=== PATIENT | male | born 1940 | race Caucasian/White ===

== ENCOUNTER 2018-12-26 06:07 | Inpatient (IN) | payer MEDICARE, BC ==
[~2018-12-26] VITALS: Ht 162.6 cm; Wt 74.4 kg
--- NOTE | 2018-12-26 08:30 | NUR ---
GPS/RN RECEIVED PT DIRECT ADMIT FROM [facility] ON 5150 FOR DTS NO ACUTE DISTRESS AMBULATORY WITH WALKER. ADMITTING ORDERS FROM DR MALIN RECEIVED AND CARRIED OUT. DR DAVIS MADE AWARE OF ADMISSION. MEDS ENTERED IN THE PATIENT'S CHOICE [facility] BY RECON. NURSE MIRIAM. CONTRABAND/MEDS TAKEN AND SENT TO THE PHARMACY FOR KEEP. DURING EYE TO EYE ASSESSMENT PT DENIED SI/HI.PT REFUSED TO SIGN THE ADMITTING PAPERWORK/CONSENTS AND TO LET THE NURSE TO COLLECT MRSA SWAB.
[2018-12-26] MEDS ORDERED: MAG HYDROX/AL HYDROX/SIMETH 30 ML UDC PO PRN (09:00)
[2018-12-26] MEDS ORDERED: ACETAMINOPHEN 325 MG TABLET PO PRN (09:00)
[2018-12-26] MEDS ORDERED: MAGNESIUM HYDROXIDE 30 ML UDC PO PRN (09:00)
[2018-12-26 09:13] VITALS: BP 131/81
[2018-12-26] MEDS ORDERED: DABI150C PO (09:44)
[2018-12-26] MEDS ORDERED: SIMV20TA6 PO (09:44)
[2018-12-26] MEDS ORDERED: TERA10CA4 PO (09:44)
[2018-12-26] MEDS ORDERED: DULO30CA51 PO (09:44)
[2018-12-26] MEDS ORDERED: OXYC30TA2 PO (09:44)
[2018-12-26] MEDS ORDERED: BACL10TA PO (09:44)
[2018-12-26] MEDS ORDERED: PREG50CA PO (09:44)
[2018-12-26] MEDS ORDERED: MIRT30TA7 PO (09:44)
[2018-12-26] MEDS ORDERED: TAPE50TA2 PO (11:30)
--- NOTE | 2018-12-26 11:30 | NUR ---
GPS/RN NUCYNTA 50 MG BID ENTERED IN HOME MEDS LIST ( PT HAS SUPPLY OF 51 TABLETS STORED AT [facility] FROM HOME MEDS SUPPLY/ COUNTED TOGETHER WITH RAYMUNDO/PHARMACY) DR SUSAN SIMON MADE AWARE OF MEDS CLARIFICATION AND TO RECONCILE MEDS
--- NOTE | 2018-12-26 11:40 | NUR ---
RN-CO: PAGED DR DAVIS TO RECONCILE TAPENTADOL HCL , AWAITING TO CALL BACK.
--- NOTE | 2018-12-26 12:03 | NUR ---
Pts , Jenny ([phone]), called the SW and stated that she does not want the pt to be discharged home. She stated that she wanted him to be transferred to the [facility] because that is closer to her location. SW stated that she will attempt to do a transfer for the pt but she stated that she cannot guarantee anything.
--- NOTE | 2018-12-26 12:34 | NUR ---
RN-CO: paged again Dr Galindo to inform him that patient needs his Oxycodone and Tapentadol hcl for pain. He refuse neurontin.
[2018-12-26] MEDS: GABAPENTIN 100 MG CAPSULE PO SCH ×2 (12:47→16:04)
[2018-12-26] MEDS ORDERED: FURO40TA5 PO (14:37)
[2018-12-26 16:00] VITALS: BP 139/66
[2018-12-26] MEDS: FUROSEMIDE 40 MG TABLET PO SCH (16:04)
[2018-12-26] MEDS: oxyCODONE IR immediate release 5 MG PO PRN (16:04)
[2018-12-26] MEDS: BACLOFEN (10 MG) 10 MG TABLET PO SCH ×2 (16:04→21:43)
[2018-12-26] MEDS: PREGABALIN 25 MG CAPSULE PO SCH (16:06)
--- NOTE | 2018-12-26 16:19 | NUR ---
TITO called the pts , Jenny ([phone]), and discussed the pt's need for pain medications. Pts stated that she decided that she does not want him transferred to [facility] anymore because she does not want to keep moving him around. She also stated that she would like to speak with the pts psychiatrist, Dr. Timmons. TITO stated she would convey the message.
[2018-12-26] MEDS ORDERED: DABIGATRAN ETEXILATE MESYLATE 150 MG CAPSULE PO SCH (17:00)
[2018-12-26] MEDS: DABIGATRAN ETEXILATE MESYLATE 150 MG CAPSULE PO SCH (17:46)
[2018-12-26 20:00] VITALS: BP 108/64
[2018-12-26] MEDS: MIRTAZAPINE 15 MG TABLET PO SCH (21:43)
[2018-12-26] MEDS: TEMAZEPAM 7.5 MG CAPSULE PO PRN (21:43)
[2018-12-26] MEDS: DULOXETINE HCL 30 MG CAPSULE.DR PO SCH (21:43)
[2018-12-26] MEDS: TERAZOSIN HCL 5 MG CAPSULE PO SCH (21:45)
[2018-12-27] MEDS: oxyCODONE IR immediate release 5 MG PO PRN ×3 (00:56→17:56)
[2018-12-27] MEDS: BACLOFEN (10 MG) 10 MG TABLET PO SCH ×3 (06:42→21:24)
[2018-12-27 07:16] LABS: CHOLESTEROL 134 mg/dL (<200); HDL CHOLESTEROL 66 mg/dL (40-60); LDL 61 mg/dL (0-99); TRIGLYCERIDES 30 mg/dL (30-150)
[2018-12-27 07:24] LABS: ALANINE AMINOTRANSFERASE 28 U/L (12-78); ALBUMIN 2.9 g/dL (3.4-5.0); ALKALINE PHOSPHATASE 58 U/L (46-116); ASPARTATE AMINOTRANSFERASE 30 U/L (15-37); BILIRUBIN,TOTAL 0.3 mg/dL (0.2-1.0); CALCIUM, SERUM 10.1 mg/dL (8.5-10.1); CARBON DIOXIDE 28 mmol/L (21-32); CHLORIDE 109 mmol/L (98-107); CREATININE 0.8 mg/dL (0.6-1.3); GLUCOSE 103 mg/dL (74-106); SODIUM SERUM 145 mmol/L (136-145); TOTAL PROTEIN, SERUM 5.8 g/dL (6.4-8.2); UREA NITROGEN, BLOOD 20 mg/dL (7-18)
[2018-12-27 08:00] VITALS: BP 135/84
[2018-12-27] MEDS: GABAPENTIN 100 MG CAPSULE PO SCH ×3 (09:18→16:41)
[2018-12-27] MEDS: FUROSEMIDE 40 MG TABLET PO SCH (09:20)
[2018-12-27] MEDS: SIMVASTATIN 20 MG TABLET PO SCH (09:21)
[2018-12-27] MEDS: PREGABALIN 25 MG CAPSULE PO SCH ×3 (09:21→16:47)
[2018-12-27] MEDS: DABIGATRAN ETEXILATE MESYLATE 150 MG CAPSULE PO SCH ×2 (09:24→17:56)
--- NOTE | 2018-12-27 14:49 | NUR ---
Initial Discharge Plan: Pt currently resides at home with his located at [address] [place] [address]; ([phone]). Per pt, he would like to return home. SW will work with the pt and the MD regarding appropriate discharge planning. SW will form a safe and proper discharge.
[2018-12-27 16:00] VITALS: BP 122/74
--- NOTE | 2018-12-27 16:12 | NUR ---
Supportive Counseling: SW and the pt discussed the pts needs while he is in the hospital. Pt stated that he feels alone and unattended to and that he needs his medication to be managed more appropriately. Pt stated that all he wants is to not be in pain because that is what causes him to feel so depressed. SW stated that he must advocate for himself when it comes to his medications and the SW stated that she would attempt to advocate for him as well.
--- NOTE | 2018-12-27 16:14 | NUR ---
Pts , Jenny ([phone]), called the SW and stated that she does not think that this facility is appropriate for the pt and that she would like to have him transferred. She stated that she would like to speak to the pt's psychiatrist.
[2018-12-27 20:01] VITALS: BP 136/51
[2018-12-27] MEDS: MIRTAZAPINE 15 MG TABLET PO SCH (21:22)
[2018-12-27] MEDS: DULOXETINE HCL 30 MG CAPSULE.DR PO SCH (21:22)
[2018-12-27] MEDS: TERAZOSIN HCL 5 MG CAPSULE PO SCH (21:23)
[2018-12-27] MEDS: TEMAZEPAM 7.5 MG CAPSULE PO PRN (22:19)
[2018-12-27] MEDS: LORAZEPAM 0.5 MG TABLET PO PRN (23:29)
[2018-12-28] MEDS: BACLOFEN (10 MG) 10 MG TABLET PO SCH ×3 (05:14→21:39)
[2018-12-28 08:00] VITALS: BP 142/64
[2018-12-28] MEDS: FUROSEMIDE 40 MG TABLET PO SCH (09:00)
[2018-12-28] MEDS: PREGABALIN 25 MG CAPSULE PO SCH ×3 (09:00→16:57)
[2018-12-28] MEDS: SIMVASTATIN 20 MG TABLET PO SCH (09:00)
[2018-12-28] MEDS: GABAPENTIN 100 MG CAPSULE PO SCH ×3 (09:00→16:57)
[2018-12-28] MEDS: DABIGATRAN ETEXILATE MESYLATE 150 MG CAPSULE PO SCH (09:01)
[2018-12-28 16:00] VITALS: BP 151/74
[2018-12-28] MEDS: PRADAXA 150 MG PO SCH (16:57)
[2018-12-28 20:00] VITALS: BP 151/79
[2018-12-28] MEDS: MIRTAZAPINE 15 MG TABLET PO SCH (21:38)
[2018-12-28] MEDS: DULOXETINE HCL 30 MG CAPSULE.DR PO SCH (21:39)
[2018-12-28] MEDS: TERAZOSIN HCL 5 MG CAPSULE PO SCH (21:40)
[2018-12-28] MEDS: TEMAZEPAM 7.5 MG CAPSULE PO PRN (21:42)
[2018-12-29] MEDS: LORAZEPAM 0.5 MG TABLET PO PRN (00:29)
[2018-12-29] MEDS: BACLOFEN (10 MG) 10 MG TABLET PO SCH ×3 (05:23→21:54)
[2018-12-29 08:00] VITALS: BP 130/64
[2018-12-29] MEDS: SIMVASTATIN 20 MG TABLET PO SCH (09:28)
[2018-12-29] MEDS: PREGABALIN 25 MG CAPSULE PO SCH ×3 (09:28→17:03)
[2018-12-29] MEDS: FUROSEMIDE 40 MG TABLET PO SCH (09:28)
[2018-12-29] MEDS: PRADAXA 150 MG PO SCH ×2 (09:28→18:06)
[2018-12-29] MEDS: GABAPENTIN 100 MG CAPSULE PO SCH ×3 (09:28→17:03)
[2018-12-29 16:00] VITALS: BP 138/81
[2018-12-29] MEDS: oxyCODONE IR immediate release 5 MG PO PRN (17:03)
--- NOTE | 2018-12-29 17:03 | NUR ---
RN NOTES ADMINISTERED OXY IR 10 MG PO PRN FOR CHRONIC LOWER BILATERAL LEGS PAIN 04/05 PER PATIENT REQUEST. V/S TAKEN BP-138/81, P-91, CONTINUED MONITORING.
[2018-12-29 19:42] VITALS: BP 130/83
[2018-12-29] MEDS: DULOXETINE HCL 30 MG CAPSULE.DR PO SCH (21:54)
[2018-12-29] MEDS: TERAZOSIN HCL 5 MG CAPSULE PO SCH (21:55)
[2018-12-29] MEDS: TEMAZEPAM 7.5 MG CAPSULE PO PRN (21:56)
[2018-12-29] MEDS: MIRTAZAPINE 15 MG TABLET PO SCH (21:56)
[2018-12-30] MEDS: LORAZEPAM 0.5 MG TABLET PO PRN ×2 (00:01→22:24)
[2018-12-30] MEDS: BACLOFEN (10 MG) 10 MG TABLET PO SCH ×3 (05:50→21:22)
--- NOTE | 2018-12-30 07:45 | NUR ---
RN NOTE: RECEIVED PATIENT IN BED, AWAKE, ALERT AND ABLE TO MAKE HIS NEEDS KNOWN. RESPIRATION EVEN AND UNLABORED. DENIED ANY PAIN. DENIED ANY SUICIDAL THOUGHTS/IDEATION, NO AUDITORY/VISUAL HALLUCINATIONS NOTED. REMAINED ISOLATED INSIDE HIS ROOM. REFUSED TO GO OUT TO THE ACTIVITY ROOM. ENCOURAGED TO GO OUT OF THE ROOM, BUT PATIENT STRONGLY REFUSED. BED ALARMED AND LOCKED AT ALL TIMES. NEED ANTICIPATED. CALL WELCH WITHIN REACH. WILL MONITOR PAIN WITHIN THE SHIFT.
[2018-12-30 08:00] VITALS: BP 118/70
[2018-12-30] MEDS: PREGABALIN 25 MG CAPSULE PO SCH ×3 (09:25→16:58)
[2018-12-30] MEDS: PRADAXA 150 MG PO SCH ×2 (09:25→16:58)
[2018-12-30] MEDS: GABAPENTIN 100 MG CAPSULE PO SCH ×3 (09:25→16:58)
[2018-12-30] MEDS: FUROSEMIDE 40 MG TABLET PO SCH (09:25)
[2018-12-30] MEDS: SIMVASTATIN 20 MG TABLET PO SCH (09:26)
--- NOTE | 2018-12-30 11:32 | NUR ---
TITO called the pts , Jenny ([phone]), and left her a voicemail stating that she would like a call back whenever possible.
--- NOTE | 2018-12-30 11:40 | NUR ---
TITO spoke to the pts , Jenny ([phone]), and she stated that she wants the pt to be discharged home and that she has found treatment for him through an injection that will help the pt with his pain and his depression. TITO stated that she would speak to the psychiatrist and then she would let her know about the pts discharge.
--- NOTE | 2018-12-30 13:45 | NUR ---
Group Note: Pt was asked to participate in group therapy but he stated that he did not want to participate due to his belief that he does not belong in the hospital with our patient population and that he only wants to focus on being discharged back home where he believes that he will receive appropriate care.
--- NOTE | 2018-12-30 14:47 | NUR ---
SW called [employer] ([phone]) and left a voicemail stating that she would like a police captain precinct to call her back because she needs to make a report about a pt in the hospital.
--- NOTE | 2018-12-30 14:56 | NUR ---
TITO called the [facility] ([phone]) again and selected the option to make a non emergency report. TITO filed a report over the phone with [employer] Worker [employer] who stated that he would see if anyone can go out to the gun shop/make a visit with the pt. Fabric Worker stated that he would call the SW back if no action can be done at this time.
--- NOTE | 2018-12-30 15:15 | NUR ---
Sergeant [place] #[id number] ([phone]) called the SW and informed her that she followed up on the report that was made and she found that a cylinder die machine helper had already gone to the gun shop to take the guns that were purchased by the pt to ensure that he will not have access to them.
--- NOTE | 2018-12-30 15:27 | NUR ---
TITO called the pts , Jenny ([phone]), and informed her that the pt will be discharged tomorrow since everything has been taken care of in terms of the guns that he had purchased. TITO will arrange transportation for the pt.
[2018-12-30 17:02] VITALS: BP 120/72
--- NOTE | 2018-12-30 19:40 | NUR ---
RN NOTE: PATIENT REPORT WAS GIVEN TO PM SHIFT NURSE FOR CONTINUITY OF CARE. PATIENT HAS NO VERBALIZATION OF PAIN DURING THE SHIFT. COMPLIANT WITH MEDICATIONS.
[2018-12-30 19:57] VITALS: BP 111/69
[2018-12-30] MEDS: DULOXETINE HCL 30 MG CAPSULE.DR PO SCH (21:22)
[2018-12-30] MEDS: MIRTAZAPINE 15 MG TABLET PO SCH (21:22)
[2018-12-30] MEDS: TERAZOSIN HCL 5 MG CAPSULE PO SCH (21:22)
[2018-12-30] MEDS: TEMAZEPAM 7.5 MG CAPSULE PO PRN (21:51)
[2018-12-31] MEDS: BACLOFEN (10 MG) 10 MG TABLET PO SCH ×2 (04:54→12:22)
[2018-12-31 08:00] VITALS: BP 124/74
[2018-12-31] MEDS: SIMVASTATIN 20 MG TABLET PO SCH (08:48)
[2018-12-31] MEDS: PRADAXA 150 MG PO SCH (08:48)
[2018-12-31] MEDS: PREGABALIN 25 MG CAPSULE PO SCH ×2 (08:49→12:22)
[2018-12-31] MEDS: FUROSEMIDE 40 MG TABLET PO SCH (08:49)
[2018-12-31] MEDS: GABAPENTIN 100 MG CAPSULE PO SCH ×2 (08:49→12:22)
--- NOTE | 2018-12-31 12:48 | NUR ---
GPS/RN-NOTES PATIENT DISCHARGE TO HOME TODAY. DR. MALIN AND [employer]BER FARIBA MADE AWARE AND AGREES WITH ORDERS. PATIENT DID NOT VERBALIZED SI/HI,DENIES VISUAL/AUDITORY HALLUCINATIONS AT THE TIME OF DISCHARGE. ALL DISCHARGE MEDICATIONS WAS REVIEWED WITH THE PATIENT WITH UNDERSTANDING. PER PATIENT HE HAD HIS OWN MEDICATIONS AT HOME AND DON'T NEED RX. RX WAS STILL GIVEN TO THE PATIENT. INSTRUCTED PATIENT TO GO TO THE NEAREST EMERGENCY OR CALL 911 FOR ANY EMERGENCY, ALSO INSTRUCTED PATIENT TO FOLLOW UP WITH PRIMARY PHYSICIAN AND PSYCHIATRIST . PATIENT LEFT THE UNIT IN STABLE CONDITION WITH ALL BELONGINGS ( OWN WALKER,MEDICATIONS AND SHOE ,AND CLOTHES). PATIENT WAS ASSISTED IN THE LOBBY BY ONE MAGNETIC DOCTOR STAFF FOR SAFETY , PLASMA PROCESSOR BY [employer]. CARDIAC TECHNICIAN CALLED PATIENT'S AIDE [phone] MADE AWARE OF THE DISCHARGE.
--- NOTE | 2018-12-31 15:48 | NUR ---
Discharge Note: Pt was discharged to his home located at [address] [place] [id number]; ([phone]). Pt was transported by taxi around 1pm. Pts , Ebonie ([phone]), was made aware of the discharge. Upon discharge, the pt appeared to be in a euthymic mood and presented with a calm affect. Pt appeared to be content about being discharges home. Pt denied both suicidal and homicidal ideation as well as auditory and visual hallucinations. Pt will be under the care of his psychiatrist, Dr. Radha Amor, located at [address] [address]; and his temperature logging operator, Dr. Abelardo Adrian, located at [address] [facility] [facility] [id number], [place] [address]; , a fax was sent to: [phone]. Pt has an appointment with his aftercare provider on 01/06/19 at 1:30PM.
== END 2018-12-31 12:45 | disposition home or self-care (01) | DRG 885 ==
LOC: GPS 08:24
PROVIDERS: ADMIT Psychiatry & Neurology Psychiatry
DX: F33.2 Major depressive disorder, recurrent severe without psychotic features (principal); F11.20 Opioid dependence, uncomplicated; R45.851 Suicidal ideations; G62.9 Polyneuropathy, unspecified; I48.91 Unspecified atrial fibrillation; M54.40 Lumbago with sciatica, unspecified side; G89.29 Other chronic pain; Z79.899 Other long term (current) drug therapy; H91.90 Unspecified hearing loss, unspecified ear
CPT/HCPCS: 36415; 80053-TC; 80061-TC; 87081-TC